=== PATIENT | female | born 1960 | race Caucasian/White ===

== ENCOUNTER 2018-06-05 14:40 | Outpatient (CLI) | payer BC ==
--- NOTE | 2018-06-05 17:31 | MRI ---
CERVICAL SPINE MRI WITHOUT CONTRAST: 06/05/18 HISTORY: Spondylosis with radiculopathy. Neck pain down the right arm x18 months. COMPARISON: None. TECHNIQUE: Cervical spine MRI is performed without intravenous gadolinium administration. Multisequential, mult iplanar imaging is performed. FINDINGS: Appropriate T1 marrow signal intensity of the cervical vertebrae. Vertebral body height is maintained . There is no fracture. No significant STIR hyperintensity to suggest the vertebral body edema or lig amentous injury. 1.6 mm of anterolisthesis of C2 upon C3, 2.3 mm of retrolisthesis of C3 upon C4. The visualized brain parenchyma, cervicomedullary junction, cervical cord, and the upper thoracic cor d have a normal size and signal intensity. C2-C3: No significant disc osteophyte complex. No significant central canal stenosis. Foramina are pa tent. C3-C4: Broad based disc bulge abuts the thecal sac. Ventral subarachnoid space is still maintained. M ild deformity of the cervical cord. Mild central canal stenosis. Mild bilateral foraminal narrowing. C4-C5: No significant disc osteophyte complex. No significant central canal stenosis. Right neural fo ramen is patent. Mild left foraminal narrowing due to degenerative change of the uncovertebral joint. C5-C6: There is a central disc bulge that abuts the thecal sac. Ventral subarachnoid space is still m aintained. Mild central canal stenosis. Right neural foramen is mildly narrowed. Mild left foraminal narrowing with degenerative change of the uncovertebral joint. C6-C7: Minimal left paracentral disc bulge. No significant central canal stenosis. Bilaterally, neura l foramina are patent. C7-T1: No significant central canal stenosis. Patient bilateral foraminal narrowing. IMPRESSION: 1. Degenerative changes cervical spine as detailed above. There is no significant central canal stenosis or neural foraminal narrowing. 2. Grade I retrolisthesis of C3 upon C4 and grade I anterolisthesis of C2 upon C3. POS: [facility]
== END 2018-06-05 14:41 | disposition home or self-care (01) ==
LOC: BICMRI 14:40
DX: M47.22 Other spondylosis with radiculopathy, cervical region (principal); M50.10 Cervical disc disorder with radiculopathy, unspecified cervical region; M43.12 Spondylolisthesis, cervical region
CPT/HCPCS: 72141